=== PATIENT | male | born 1965 | race Caucasian/White ===

== ENCOUNTER 2018-02-11 20:01 | Emergency (ER) | payer MEDICARE ==
[2018-02-11] MEDS ORDERED: RANI-366 PO (20:14)
[2018-02-11] MEDS ORDERED: METO25TA23 PO (20:14)
[2018-02-11] MEDS ORDERED: APIX5TAB PO (20:14)
[2018-02-11] MEDS ORDERED: ASPI-1471 PO (20:14)
[2018-02-11] MEDS ORDERED: ASPIRIN 325 MG TAB PO STA (20:17)
--- NOTE | 2018-02-11 20:32 | ER Report ---
History and Physical Time Seen By MD: 20:28 Hx. of Stated Complaint: PT STARTED HAVING LEFT SIDED CHEST PAIN RADIATING DOWN THE LEFT ARM STARTING APPROX 1 HOUR AGO, PT TURNED BRIGHT RED. PT ALSO IS COMPLAINING OF WEAKNESS AND SLURRED SPEECH. PT HAS SIG HX OF STROKES, AND PREVIOS OK. HPI/ROS CHIEF COMPLAINT: Left facial numbness left upper extremity numbness which started approximately 1930 HISTORY OF PRESENT ILLNESS: Patient is a 52-year-old male here with complaints of left-sided numbness without weakness. Patient has a prior history of strokes however is currently on elaquis. Patient reports that he decreased his dose however he is currently taking this medication which makes him not a candidate for thrombolytic therapy. Patient reports that he started having palpitations which preceded his symptoms. He took aspirin prior to arrival. Patient denies new motor weakness. He does have prior deficits from his previous strokes which are unable to be elicited at this time. Patient was blurred vision, current chest pain, shortness breath, nausea, vomiting, fevers or chills. Palpitations have abated. He does have a mild headache. REVIEW OF SYSTEMS: Constitutional: No fever, no chills. Eyes: No discharge. ENT: No sore throat. Cardiovascular: No chest pain, no palpitations. Respiratory: No cough, no shortness of breath. Gastrointestinal: No abdominal pain, no vomiting. Genitourinary: No hematuria. Musculoskeletal: No back pain. Skin: No rashes. Neurological: + mild headache. Home Meds Reported Medications Ranitidine Hcl (ZANTAC) 150 Mg Tablet, 150 MG PO QDAY, TAB 02/11/18 Aspirin (ASPIR 81) 81 Mg Tablet.dr, 81 MG PO QDAY, TAB 02/11/18 Apixaban (ELIQUIS) 5 Mg Tablet, 5 MG PO BID 02/11/18 Metoprolol Succinate (METOPROLOL SUCCINATE) 25 Mg Tab.er.24h, 1 TAB PO BID, TAB 02/11/18 Constitutional Vital Sign - Last 24 Hours 02/11/18 02/11/18 02/11/18 02/11/18 20:01 20:04 20:06 20:11 Temp 98.0 Pulse 97 88 90 82 Resp 15 18 29 19 B/P (MAP) 148/87 Pulse Ox 94 94 93 92 O2 Delivery Room Air 7/11/18 02/11/18 02/11/18 02/11/18 20:16 20:21 20:26 20:30 Pulse 83 85 82 Resp 23 22 23 B/P (MAP) 139/98 (112) Pulse Ox 93 93 94 02/11/18 02/11/18 02/11/18 02/11/18 20:31 20:36 20:45 20:46 Pulse 80 83 ??? Resp 25 20 B/P (MAP) ???/??? (1665) Pulse Ox 91 94 02/11/18 02/11/18 02/11/18 02/11/18 20:56 21:00 21:01 21:06 Pulse 77 77 79 Resp 14 18 31 B/P (MAP) 137/90 (106) Pulse Ox 93 91 91 02/11/18 02/11/18 02/11/18 02/11/18 21:11 21:15 21:16 21:21 Pulse 76 72 76 Resp 35 30 12 B/P (MAP) 136/97 (110) Pulse Ox 91 92 92 02/11/18 02/11/18 02/11/18 02/11/18 21:26 21:30 22:20 22:30 Pulse ??? 74 Resp 33 21 B/P (MAP) 128/88 (101) 121/78 (92) Pulse Ox 93 90 02/11/18 02/11/18 02/11/18 02/11/18 22:35 22:50 23:00 23:05 Pulse 71 77 63 Resp 8 15 12 B/P (MAP) 120/75 (90) Pulse Ox 94 93 91 02/11/18 02/11/18 02/11/18 02/11/18 23:20 23:30 23:35 23:50 Pulse 71 72 65 Resp 15 18 16 B/P (MAP) 124/74 (91) Pulse Ox 93 93 90 02/12/18 02/12/18 02/12/18 02/12/18 00:00 00:05 00:20 00:30 Pulse 63 58 Resp 15 13 B/P (MAP) 117/72 (87) 116/74 (88) Pulse Ox 91 93 02/12/18 00:35 Pulse 76 Resp 22 Pulse Ox 92 Physical Exam General Appearance: The patient is alert, has no immediate need for airway protection and no signs of toxicity. Eyes: Pupils equal and round no pallor or injection. ENT, Mouth: Mucous membranes are moist. Respiratory: There are no retractions, lungs are clear to auscultation. Cardiovascular: Regular rate and rhythm. Gastrointestinal: Abdomen is soft and non tender, no masses, bowel sounds normal. Neurological: Left-sided facial paresthesias, left upper extremity paresthesias without motor weakness. Skin: Warm and dry, no rashes. Musculoskeletal: Neck is supple non tender. Extremities are nontender, nonswollen and have full range of motion. DIFFERENTIAL DIAGNOSIS: After history and physical exam differential diagnosis was considered for a seizure including but not limited to electrolyte abnormality, alcohol withdrawal, medication noncompliance, head injury, and breakthrough seizure. Medical Decision Making Data Points Result Diagram: 02/11/18199902/11/181999 Laboratory Hematology Test 02/11/18 20:00 02/12/18 00:00 Red Blood Count 5.29 M/uL (4.00-5.60) Mean Corpuscular Volume 87.1 fL (80.0-96.0) Mean Corpuscular Hemoglobin 31.9 pg (26.0-33.0) Mean Corpuscular Hemoglobin Concent 36.6 g/dL (32.0-36.0) Red Cell Distribution Width 13.1 % (11.5-14.5) Mean Platelet Volume 8.9 fL (7.2-11.1) Neutrophils (%) (Auto) 51.4 % (39.4-72.5) Lymphocytes (%) (Auto) 35.7 % (17.6-49.6) Monocytes (%) (Auto) 8.3 % (4.1-12.4) Eosinophils (%) (Auto) 4.0 % (0.4-6.7) Basophils (%) (Auto) 0.6 % (0.3-1.4) Nucleated RBC Relative Count (auto) 0.2 /100WBC Neutrophils # (Auto) 4.5 K/uL (2.0-7.4) Lymphocytes # (Auto) 3.1 K/uL (1.3-3.6) Monocytes # (Auto) 0.7 K/uL (0.3-1.0) Eosinophils # (Auto) 0.4 K/uL (0.0-0.5) Basophils # (Auto) 0.1 K/uL (0.0-0.1) Nucleated RBC Absolute Count (auto) 0.02 K/uL Prothrombin Time 13.4 seconds (12.0-14.4) Prothromb Time International Ratio 1.02 Activated Partial Thromboplast Time 30 seconds (23-35) Sodium Level 141 mmol/L (137-145) Potassium Level 3.1 mmol/L (3.5-5.0) Chloride Level 102 mmol/L (98-107) Carbon Dioxide Level 27 mmol/L (22-30) Blood Urea Nitrogen 13 mg/dl (9-21) Creatinine 0.90 mg/dl (0.66-1.25) Glomerular Filtration Rate Calc > 60.0 Random Glucose 112 mg/dl (75-110) Calcium Level 8.9 mg/dl (8.4-10.2) Total Bilirubin 0.7 mg/dl (0.2-1.3) Aspartate Amino Transf (AST/SGOT) 61 U/L (0-35) Alanine Aminotransferase (ALT/SGPT) 76 U/L (0-56) Alkaline Phosphatase 66 U/L (0-126) Total Protein 8.2 g/dl (6.3-8.2) Albumin 4.4 g/dl (3.5-5.0) Troponin I < 0.012 ng/ml Chemistry Test 02/11/18 20:00 02/12/18 00:00 White Blood Count 8.7 k/uL (4.5-11.0) Red Blood Count 5.29 M/uL (4.00-5.60) Hemoglobin 16.9 g/dL (14.0-18.0) Hematocrit 46.1 % (42.0-52.0) Mean Corpuscular Volume 87.1 fL (80.0-96.0) Mean Corpuscular Hemoglobin 31.9 pg (26.0-33.0) Mean Corpuscular Hemoglobin Concent 36.6 g/dL (32.0-36.0) Red Cell Distribution Width 13.1 % (11.5-14.5) Platelet Count 180 K/uL (150-450) Mean Platelet Volume 8.9 fL (7.2-11.1) Neutrophils (%) (Auto) 51.4 % (39.4-72.5) Lymphocytes (%) (Auto) 35.7 % (17.6-49.6) Monocytes (%) (Auto) 8.3 % (4.1-12.4) Eosinophils (%) (Auto) 4.0 % (0.4-6.7) Basophils (%) (Auto) 0.6 % (0.3-1.4) Nucleated RBC Relative Count (auto) 0.2 /100WBC Neutrophils # (Auto) 4.5 K/uL (2.0-7.4) Lymphocytes # (Auto) 3.1 K/uL (1.3-3.6) Monocytes # (Auto) 0.7 K/uL (0.3-1.0) Eosinophils # (Auto) 0.4 K/uL (0.0-0.5) Basophils # (Auto) 0.1 K/uL (0.0-0.1) Nucleated RBC Absolute Count (auto) 0.02 K/uL Prothrombin Time 13.4 seconds (12.0-14.4) Prothromb Time International Ratio 1.02 Activated Partial Thromboplast Time 30 seconds (23-35) Glomerular Filtration Rate Calc > 60.0 Calcium Level 8.9 mg/dl (8.4-10.2) Total Bilirubin 0.7 mg/dl (0.2-1.3) Aspartate Amino Transf (AST/SGOT) 61 U/L (0-35) Alanine Aminotransferase (ALT/SGPT) 76 U/L (0-56) Alkaline Phosphatase 66 U/L (0-126) Total Protein 8.2 g/dl (6.3-8.2) Albumin 4.4 g/dl (3.5-5.0) Troponin I < 0.012 ng/ml Coagulation Test 02/11/18 20:00 Prothrombin Time 13.4 seconds Prothromb Time International Ratio 1.02 Activated Partial Thromboplast Time 30 seconds EKG/Imaging EKG Interpretation EXAM DATE: ORDERING PHYSICIAN: ZONIA ANTHONY TECHNOLOGIST: MARIA ISABEL Test Reason : CP Blood Pressure : / mmHG Vent. Rate : 092 BPM Atrial Rate : 092 BPM P-R Int : 140 ms QRS Dur : 086 ms QT Int : 362 ms P-R-T Axes : 058 013 035 degrees QTc Int : 447 ms Sinus rhythm Possible left atrial enlargement Artifact in several limb leads - repeat if needed No previous ECGs available Confirmed by BRYNA CURIEL ([id number]) on 02/12/2018 6:04:29 AM Monitor Interpretation: Normal Sinus Rhythm Imaging CT Head: No acute intracranial bleed, see official report MRI Brain: No acute ischemic changes, see official report ED Course/Re-evaluation ED Course Patient is a 52-year-old male here with complaints of left-sided facial numbness , left upper extremity numbness without weakness. Patient has prior history of strokes however he is currently being treated with elaquis even though he has been drinking his medication dosages. Patient reports symptoms onset shortly prior to arrival. CT imaging of the brain was completed to rule out intracranial hemorrhage which was negative. MRI was completed to rule out ischemic changes which is also found to be negative. Patient was found to be hypokalemic on labs and was repleted. Due to patient's medical history, O2 sat cardiac enzymes rule out was completed and was negative. Patient was advised to follow-up with family doctor in the next day. Patient was updated regarding plans and voiced understanding. Decision to Disposition Date: Feb 12, 2018 Decision to Disposition Time: 00:56 Depart Departure Latest Vital Signs Vital Signs Date Time Temp Pulse Resp B/P (MAP) Pulse Ox O2 Delivery O2 Flow Rate FiO2 02/12/18 00:35 76 22 92 02/12/18 00:30 116/74 (88) 02/11/18 20:04 98.0 Room Air Impression: Primary Impression: Numbness and tingling Additional Impression: Fatigue Condition: Improved Disposition: HOME OR SELF-CARE Patient Instructions: Fatigue (ED), Paresthesia (ED) Additional Instructions: Please follow up promptly with your family doctor in the next several days. Please return promptly if you develop recurrent symptoms, nausea, vomiting, fever, chills, chest pain, shortness of breath, headache Problem Qualifiers ZONIA ANTHONY DO Feb 11, 2018 20:32
[2018-02-11] MEDS ORDERED: POTASSIUM CHL 20 MEQ TABCR PO ONE (20:40)
[2018-02-11 20:42] LABS: INR 1.02
[2018-02-11 20:51] LABS: PLATELET COUNT, AUTOMATED 180 K/uL (150-450)
--- NOTE | 2018-02-11 20:58 | EKG ---
FACILITY: [facility] PATIENT NAME: SOFIA MILLER : [id number] MR: [id number]: [id number] EXAM DATE: ORDERING PHYSICIAN: ZONIA ANTHONY TECHNOLOGIST: MARIA ISABEL Test Reason : CP Blood Pressure : / mmHG Vent. Rate : 092 BPM Atrial Rate : 092 BPM P-R Int : 140 ms QRS Dur : 086 ms QT Int : 362 ms P-R-T Axes : 058 013 035 degrees QTc Int : 447 ms Sinus rhythm Possible left atrial enlargement Artifact in several limb leads - repeat if needed No previous ECGs available Confirmed by BRYAN CURIEL ([id number] on 02/12/2018 6:04:29 AM Referred By: Confirmed By:BRYAN CURIEL
[2018-02-12 00:30] VITALS: BP 116/74
== END 2018-02-12 00:50 | disposition home or self-care (01) ==
LOC: ER 20:30
DX: R20.0 Anesthesia of skin (principal); R20.2 Paresthesia of skin; R53.83 Other fatigue
CPT/HCPCS: 36415; 70450; 70551; 84484; 85025; 85610; 85730; 93005; 99285; A9270; 82040; 82247; 82310; 82374; 82435; 82565; 82947; 84075; 84132; 84155; 84295; 84450; 84460; 84520